=== PATIENT | male | born 2000 | race Caucasian/White ===

== ENCOUNTER 2019-09-16 17:32 | Emergency (ER) | payer OTHER ==
[2019-09-16 18:35] VITALS: BP 135/85
[2019-09-16 18:46] LABS: Influenza B Molecular POSITIVE (Negative)
--- NOTE | 2019-09-16 19:07 | UC ---
FLU HPI - HPI Summary HPI Summary: complaints of fatigue and weakness, states for past 6 days, body aches and chills, states feeling better today. - History of Current Complaint Chief Complaint: UCGeneralIllness Stated Complaint: BODY ACHES, FEVER Time Seen by Provider: 09/16/19 19:05 Hx Obtained From: Patient Onset/Duration: Sudden Onset, Lasting Days - 6 Severity Currently: Mild Pain Intensity: 0 Related Hx: Possible Flu/Infectious Exposure - Allergy/Home Medications Allergies/Adverse Reactions: Allergies Allergy/AdvReac Type Severity Reaction Status Date / Time No Known Allergies Allergy Verified 09/16/19 18:35 Home Medications: Home Medications D-Methorphan/PE/Acetaminophen [Day Time Cold-Flu Liquid] 237 ml PO DAILY [History Confirmed 09/16/19] PMH/Surg Hx/FS Hx/Imm Hx Previously Healthy: Yes - Surgical History Surgical History: Yes Surgery Procedure, Year, and Place: Hernia surgery 2013 - Family History Known Family History: Positive: Hypertension - Social History Alcohol Use: Occasionally Substance Use Type: Marijuana Smoking Status (MU): Never Smoked Tobacco Review of Systems All Other Systems Reviewed And Are Negative: Yes Constitutional: Positive: Fever ENT: Positive: Sore Throat Musculoskeletal: Positive: Arthralgia, Myalgia Neurological/Mental Status: Positive: Headache Is Patient Immunocompromised?: No Physical Exam Triage Information Reviewed: Yes Appearance: Well-Nourished, Ill-Appearing, Pain Distress Vital Signs: Initial Vital Signs Temp 98.7 F 09/16/19 18:29 Pulse 81 09/16/19 18:29 Resp 16 09/16/19 18:29 BP 135/85 09/16/19 18:29 Pulse Ox 100 09/16/19 18:29 Eye Exam: Normal ENT: Positive: Pharyngeal erythema, TM bulging, TM dull Neck: Positive: Supple, Nontender, No Lymphadenopathy Respiratory Exam: Normal Respiratory: Positive: Chest non-tender, Lungs clear, Normal breath sounds Cardiovascular Exam: Normal Cardiovascular: Positive: RRR, No Murmur, Pulses Normal Abdominal Exam: Normal Bowel Sounds: Positive: Present Musculoskeletal Exam: Normal Neurological Exam: Normal Skin Exam: Normal Flu Course/Dx - Course Course Of Treatment: hx obtained, exam performed ,meds reiviewed, positive for flu. - Differential Dx/Diagnosis Provider Diagnosis: Influenza B Discharge ED - Sign-Out/Discharge Documenting (check all that apply): Patient Departure All imaging exams completed and their final reports reviewed: No Studies - Discharge Plan Condition: Stable Disposition: HOME Patient Education Materials: Influenza (ED) Referrals: No Primary Care Phys,NOPCP [Primary Care Provider] - Additional Instructions: 1. rest and get plenty of fluids 2. Ibuprofen and tylenol for pain 3. Stay home till fever free - Billing Disposition and Condition Condition: STABLE Disposition: Home - Attestation Statements Provider Attestation: I was available for consult. This patient was seen by the [facility]. The patient was not presented to, seen by, or examined by me. -Fredrick
== END 2019-09-16 19:14 | disposition home or self-care (01) ==
LOC: UCCORT 17:32
DX: J10.1 Influenza due to other identified influenza virus with other respiratory manifestations (principal)
CPT/HCPCS: 99201; G0463